=== PATIENT | male | born 1995 | race Caucasian/White ===

== ENCOUNTER 2018-02-28 22:16 | Emergency (ER) | payer OTHER ==
[2018-02-28 22:26] VITALS: BP 157/89; BMI 31.5
--- NOTE | 2018-02-28 23:17 | DR.GENAD ---
HPI - PCP Primary Care Physician: JEANNIE VALENCIA - Complaint/Symptoms Chief Complaint Doctors Comments: Patient is complaining of RLQ pain for the past 2-3 days getting progressively worst when he eats. He denies dysuria, hematuria, diarrhea, cold, cough, fever or chills but has been having constipation. States he is taking Plaquinel for lupus and Linzess for constipation. States he had an x-ray yesterday from Dr. Valencia for constipation and he told him his bowels was fine. Chief Complaint:: STOMACH PAIN Self Treatment fo Chief Complaint: LINESS 145MG LAST NIGHT FOR CONSTIPATION - Nurses notes reviewed Nurses Notes Review: Yes - Source History Provided: Patient, Family Member - Mode of Arrival Mode of Arrival: Ambulatory - Timing Onset of Chief Complaint: 02/25/18 Came on: Gradually - Duration Duration: Constant How lon Duration: Days - Location Location: RLQ tenderness - Severity Severity: Moderate - Modifying Factors Worsens:: eating Improves:: nothing. PMH - PMH Past Medical History: Yes Past Medical History: Arthritis Past Medical History Comment: LUPUS, IBS, Past Surgical History: No - Family History History of Family Medical Conditions: Yes Family Medical History: Diabetes Mellitus, Cancer Family Medical History Comment: MOTHER-DM. SISTER-HTN. DADDY-HTN. GRANDPARENT /PAT-DM, HEART DISEASE. PAPA/PAT- CANCER - Social History Does patient currently use any type of tobacco product: No Have you used tobacco products in the last 12 months: No Type of Tobacco Use: None Does any household member use tobacco: Yes Alcohol Use: Occasionally Do you use any recreational Drugs:: No Lives With: Friend Lives Where: Home - infectious screening In the last 2 months have you had wt loss of >10#?: NO Have you had fever, night sweats or hemotysis?: No Have you traveled outside the country in the last 6 months?: No Isolation: Standard ROS - Review of Systems Constitutional: No Symptoms Reported, Loss of Appetite Eyes: No Symptoms Reported. negative: See HPI, Eye Pain, Blurred Vision, Tearing, Discharge, Photophobia, Diplopia, Other ENTM: No Symptoms Reported Respiratoy: No Symptoms Reported. negative: See HPI, Productive Cough, Non- Productive Cough, Moist Cough, Dry Cough, Hacking Cough, Barking Cough, Brassy Cough, Orthopnea, Short of Breath, Stridor, Wheezing, Hemoptysis, Other Cardiovascular: No Symptoms Reported Gastrointestinal/Abdominal: No Symptoms Reported, Abdominal Pain (RLQ pain), Constipation, Nausea Genitourinary: No Symptoms Reported. negative: See HPI, Discharge, Dysuria, Frequency, Hematuria, Pain, Bleeding, Other Neurological: No Symptoms Reported Musculoskeletal: No Symptoms Reported. negative: See HPI, Back Pain, Gout, Joint Pain, Joint Swelling, Muscle Pain, Muscle Stiffness, Neck Pain, Right, Left, Neck, Chest wall, Rib(s), Back, Shoulder, Arm, Elbow, Forearm, Wrist, Hand , Pelvis, Hip, Leg, Knee, Ankle, Foot, Other Integumentary: No Symptoms Reported Hematologic/Lymphatic: No Symptoms Reported. negative: See HPI, Anemia, Blood Clots, Easy Bleeding, Easy Bruising, Swollen Glands, Lymphadenopathy, Other Endocrine: No Symptoms Reported Psychiatric: No Symptoms Reported. negative: See HPI, Anxiety, Depression, Hallucinations, Excessive crying, Suicidal, Other PE - Vital Signs Vitals: Temperature 99.5 F Pulse Rate 90 Respiratory Rate 22 Blood Pressure 157/89 O2 Sat by Pulse Oximetry 99 - General Limitations: No Limitations General Appearance: Alert, In Distress (slight) - Head Head Exam: Normal Inspection, Atraumatic, Normocephalic - Eyes Eye exam: Normal Appearance, PERRL, EOMI. negative: Scleral Icterus, Conjunctival Injection, Nystagmus, Miosis, Mydrasis, Periorbital Swelling, Periorbital Tenderness, Other - ENT ENT Exam: Normal Exam, Normal Oropharynx, Normal External Ear Exam, Mucous Membranes Moist, TM's Normal Bilaterally External Ear Exam: Normal External Inspection TM/Canal Exam: Bilateral Normal Nose Exam: Normal Nose Exam Mouth Exam: Normal Inspection. negative: Drooling, Trismus, Lip Swelling, Tongue Elevation, Tongue Swelling, Laceration, Other Throat Exam: Normal Inspection - Neck Neck Exam: Normal Inspection, Full ROM, Trachea Midline - Chest Chest Inspection: Normal Inspection, Symmetric Chest Wall Rise. negative: Tenderness, Rash, Abscess, Other - Respiratory Respiratory Exam: Normal Lung Sounds Bilat Respiratory Exam: Bilateral Clear to Auscultation - Cardiovascular Cardiovascular Exam: Regular Rate, Normal Rhythm, Normal Heart Sounds - Abdominal Exam Abdominal Exam: Normal Inspection, Normal Bowel Sounds, Soft, Tenderness (RLQ, epigastric tenderness), Dimnished Bowel Sounds Abdominal Tenderness: RLQ, Epigastrium, Moderate - Extremities Extremities Exam: Normal Inspection, Full ROM, Normal Capillary Refill. negative: Tenderness, Edema, Joint Swelling, Calf Tenderness, Other - Back Back Exam: Normal Inspection, Full ROM - Neurologic Neurological Exam: Alert, Oriented X3, CN II-XII Intact, Normal Gait, Reflexes Normal - Psychiatric Psychiatric Exam: Normal Affect, Normal Mood - Skin Skin Exam: Warm, Dry, Intact, Normal Color ROR - Labs Reviewed Laboratory Results Reviewed?: Yes (All labs and x-ray results reviewed and discussed with patient and mother) Result Diagrams: 02/28/18 23:22 02/28/18 23: Laboratory: WBC 13.5 X10^3/uL (3.6-10.0) H 02/28/18: RBC 4.92 X10^6/uL (4.7-6.0) 02/28/18: Hgb 14.8 g/dL (13.5-18.0) 02/28/18: Hct 42.0 % (42.0-54.0) 02/28/18: MCV 85.3 fL (80.0-100.0) 02/28/18 23: MCH 30.0 pg (27.0-34.0) 02/28/18 23: MCHC 35.1 g/dL (33.0-35.0) H 02/28/18: RDW 12.7 % (11.6-16.5) 02/28/18: Plt Count 172 X10^3/uL (150.0-450.0) 02/28/18: MPV 9.5 fL (7.4-11.0) 02/28/18: Neut % (Auto) 68.0 % (42.0-75.0) 02/28/18: Lymph % (Auto) 20.0 % (21.0-51.0) L 02/28/18: [place] % (Auto) 9.7 % (0.0-13.0) 02/28/18: Eos % (Auto) 1.9 % (0.9-2.9) 02/28/18: Baso % (Auto) 0.4 % (0.2-1.0) 02/28/18 23:22 Neut # (Auto) 9.1 x10^3/uL (2.2-4.8) H 02/28/18 23:22 Lymph # (Auto) 2.7 X10^3/uL (1.3-2.9) 02/28/18 23:22 [place] # (Auto) 1.3 x10^3/uL (0.3-0.8) H 02/28/18 23:22 Eos # (Auto) 0.3 x10^3/uL (0.0-0.2) H 02/28/18 23:22 Baso # (Auto) 0.1 X10^3/uL (0.0-0.1) 02/28/18 23:22 Absolute Nucleated RBC 0.0 /100WBC 02/28/18 23:22 Sodium 142 mmol/L (136-145) 02/28/18 23:22 Corrected Sodium TNP 02/28/18 23:22 Potassium 4.0 mmol/L (3.5-5.1) 02/28/18 23:22 Chloride 107 mmol/L (98-107) 02/28/18 23:22 Carbon Dioxide 26.9 mmol/L (21-32) 02/28/18 23:22 BUN 18 mg/dL (7-18) 02/28/18 23:22 Creatinine 2.40 mg/dL (0.70-1.30) H 02/28/18 23:22 Est GFR (MDRD) Af Amer 44 (>60) L 02/28/18 23:22 Est GFR (MDRD) Non-Af 37 (>60) L 02/28/18 23:22 Glucose 110 mg/dL (65-99) H 02/28/18 23:22 Calcium 8.4 mg/dL (8.5-10.1) L 02/28/18 23:22 Corrected Calcium TNP 02/28/18 23:22 Total Bilirubin 0.50 mg/dL (0.2-1.0) 02/28/18 23:22 AST < 6 Units/L (15-37) L 02/28/18 23:22 ALT 19 Units/L (12-78) 02/28/18 23:22 Alkaline Phosphatase 106 Units/L (46-116) 02/28/18 23:22 Total Protein 7.8 g/dL (6.4-8.2) 02/28/18 23:22 Albumin 3.6 g/dL (3.4-5.0) 02/28/18 23:22 Globulin 4.2 g/dL (2.5-4.5) 02/28/18 23:22 Albumin/Globulin Ratio 0.9 Ratio (1.1-2.1) L 02/28/18 23: Amylase 32 Units/L (25-115) 02/28/18 23: Lipase 82 Units/L (73-393) 02/28/18 23:22 Specimen Type Clean catch urine 03/01/18 00:19 Urine Color Pale yellow (YELLOW) 03/01/18: Urine Appearance Clear (CLEAR) 03/01/18: Urine pH 7.0 (5.0 - 8.0) 03/01/18 00: Ur Specific [place] 1.005 (1.000-1.030) 03/01/18: Urine Protein Negative (NEGATIVE) 03/01/18 00: Urine Glucose (UA) Negative (NEGATIVE) 03/01/18 00: Urine Ketones Negative (NEGATIVE) 03/01/18: Urine Occult Blood 3+ (NEGATIVE) 03/01/18: Urine Nitrite Negative (NEGATIVE) 03/01/18: Urine Bilirubin Negative (NEGATIVE) 03/01/18 00: Urine Urobilinogen Normal (NORMAL) 03/01/18: Ur Leukocyte Esterase Negative (NEGATIVE) 03/01/18: Urine RBC 3-5 /HPF (NONE SEEN) 03/01/18 00: Urine WBC None seen /HPF (NONE SEEN) 03/01/18 00: Ur Squamous Epith Cells Rare /HPF (NEGATIVE) 03/01/18: Urine Bacteria Negative /HPF (NEGATIVE) 03/01/18: Ur Culture Indicated? No/not indicated 03/01/18 00: H. pylori IgG Antibody Negative (NEGATIVE) 02/28/18 23:22 - XRAY XRAY Interpreted by: Radiologist (CT abdomen and pelvis: Negative non cntrast CT of the abdomen and pelvis) - Diagnosis Discharge Problem: Abdominal pain in male, History of lupus, Dyspepsia Hematuria Qualifiers: Hematuria type: asymptomatic microscopic Qualified Code(s): R31.21 - Asymptomatic microscopic hematuria Chronic kidney disease Qualifiers: Chronic kidney disease stage: stage 3 (moderate) Qualified Code(s): N18.3 - Chronic kidney disease, stage 3 (moderate) - Discharge Plan Disposition: HOME, SELF-CARE Condition: Stable Prescriptions: Ranitidine HCl [ZANTAC TAB 150 MG *] 150 mg PO BID #60 tab - Follow ups/Referrals Follow ups/Referrals: JEANNIE VALENCIA [Primary Care Provider] - 3 days - Instructions Instructions: Food Basics for Chronic Kidney Disease, Preventing Chronic Kidney Disease, Hematuria, Adult, Abdominal Pain, Adult, [id number]
[2018-02-28 23:39] LABS: BASOPHILS # (AUTO) 0.1 X10^3/uL (0.0-0.1); BASOPHILS % (AUTO) 0.4 % (0.2-1.0); EOSINOPHILS # (AUTO) 0.3 x10^3/uL (0.0-0.2); EOSINOPHILS % (AUTO) 1.9 % (0.9-2.9); HEMOGLOBIN 14.8 g/dL (13.5-18.0); LYMPHOCYTES # (AUTO) 2.7 X10^3/uL (1.3-2.9); MEAN CORPUSCULAR HGB CONC 35.1 g/dL (33.0-35.0); MEAN CORPUSCULAR VOLUME 85.3 fL (80.0-100.0); MEAN PLATELET VOLUME 9.5 fL (7.4-11.0); MONOCYTES # (AUTO) 1.3 x10^3/uL (0.3-0.8); MONOCYTES % (AUTO) 9.7 % (0.0-13.0); NEUTROPHILS # (AUTO) 9.1 x10^3/uL (2.2-4.8); PLATELET COUNT 172 X10^3/uL (150.0-450.0); RED BLOOD COUNT 4.92 X10^6/uL (4.7-6.0); RED CELL DISTRIBUTION WIDTH 12.7 % (11.6-16.5); WHITE BLOOD COUNT 13.5 X10^3/uL (3.6-10.0)
[2018-02-28 23:46] LABS: ALANINE AMINOTRANSFERASE 19 Units/L (12-78); ALBUMIN 3.6 g/dL (3.4-5.0); ALKALINE PHOSPHATASE 106 Units/L (46-116); AMYLASE 32 Units/L (25-115); ASPARTATE AMINO TRANSFERASE < 6 Units/L (15-37); BLOOD UREA NITROGEN 18 mg/dL (7-18); CALCIUM 8.4 mg/dL (8.5-10.1); CARBON DIOXIDE 26.9 mmol/L (21-32); CHLORIDE 107 mmol/L (98-107); LIPASE 82 Units/L (73-393); SODIUM 142 mmol/L (136-145); TOTAL PROTEIN 7.8 g/dL (6.4-8.2); eGFR BLACK RACES 44 (>60); eGFR NON BLACK RACES 37 (>60)
[2018-03-01 00:51] LABS: BILIRUBIN,URINE NEGATIVE (NEGATIVE); BLOOD/HEMOGLOBIN,URINE 3+ (NEGATIVE); GLUCOSE, URINE NEGATIVE (NEGATIVE); KETONES,URINE NEGATIVE (NEGATIVE); LEUKOCYTE ESTERASE ,URINE NEGATIVE (NEGATIVE); NITRITES,URINE NEGATIVE (NEGATIVE); PROTEIN,URINE NEGATIVE (NEGATIVE); UROBILINOGEN,URINE NORMAL (NORMAL)
[2018-03-01 00:59] LABS: APPEARANCE,URINE CLEAR (CLEAR); BACTERIA,URINE NEGATIVE /HPF (NEGATIVE); COLOR,URINE PALE YELLOW (YELLOW); SQUAMOUS EPITHELIAL CELL,UR RARE /HPF (NEGATIVE)
[2018-03-01] MEDS ORDERED: TORADOL 60 MG VIAL ONE (01:29)
--- NOTE | 2018-03-01 01:46 | CT ---
HISTORY: Right lower quadrant pain Study: CT abdomen and pelvis without contrast Comparison: None Technique: Multiple axial images of the abdomen and pelvis were obtained without IV contrast. Dose reduction t echniques including Automated Exposure Control (AEC) and adjustment of mA and kV were utilized. Findings: Please note evaluation is limited without use of IV contrast. The visualized lung bases are clear. The liver, spleen, pancreas, kidneys, and adrenal glands are un remarkable in their unenhanced CT appearance. The gallbladder is normal. No free intraperitoneal air. No evidence of intestinal obstruction or inflammation. Normal appendix. Oral contrast reaches the proximal colon. No free fluid identified. The soft tissues and osseous structures are unremarkable. Limited evaluation of vascular structures d ue to lack of contrast. No pathologically enlarged lymph nodes are identified. Normal urinary bladder IMPRESSION: 1.Negative noncontrast CT of the abdomen and pelvis. Reported By:
[2018-03-01] MEDS ORDERED: LEVSIN/MAALOX/LIDOC VISC PO ONE (02:05)
[2018-03-01] MEDS ORDERED: LEVSIN/MAALOX/LIDOC VISC ONE (02:06)
== END 2018-03-01 02:16 | disposition home or self-care (01) ==
LOC: ER 22:16
DX: R10.31 Right lower quadrant pain (principal); N18.3 Chronic kidney disease, stage 3 (moderate); Z87.39 Personal history of other diseases of the musculoskeletal system and connective tissue; R31.21 Asymptomatic microscopic hematuria; R10.13 Epigastric pain
CPT/HCPCS: 36415; 74176; 80053; 81001; 82150; 83690; 85025; 86677; 99283; J1885

== ENCOUNTER → 2018-02-28 | Outpatient (CLI) | payer OTHER ==
[2013-05-04 18:29] VITALS: BP 114/74
--- NOTE | 2018-02-28 12:57 | RAD ---
HISTORY: Abdominal pain for 1 week Study: Acute abdominal series Comparison: None Findings: The trachea is midline. The cardiac silhouette is unremarkable. The lungs are clear without focal i nfiltrate or effusion. The bony thorax is unremarkable. Flat plate and upright evaluation of the abdomen demonstrates a normal bowel gas pattern. No patholo gical soft tissue mass or calcification can be observed. The bony structures are grossly intact. IMPRESSION: 1. No acute cardiopulmonary disease. 2. No evidence for acute abdominal pathology identified. Reported By:
== END ==
LOC: RAD 12:35
PROVIDERS: ATTEND Obstetrics & Gynecology Obstetrics
DX: R10.84 Generalized abdominal pain (principal)
CPT/HCPCS: 74022

== ENCOUNTER → 2018-03-04 | Outpatient (CLI) | payer OTHER ==
[2018-02-28 22:26] VITALS: BP 157/89
--- NOTE | 2018-03-05 07:40 | US ---
History: Chronic kidney disease Study: Ultrasound of the kidneys Comparison: None Findings: The right kidney measures 10.8 x 4.55 x 6 point 9 cm without mass. There is no hydronephros is. The left kidney measures 11.41 x 4.71 x 6.81 cm without mass or hydronephrosis. Measurements calculate the prevoid volume of 248 mL in the urinary bladder a postvoid residual of 4.6 mL. There is mildly increased echogenicity of renal cortex bilaterally. Impression: 1. Mildly increased echogenicity of renal cortex compatible with a diffuse renal cortical disease 2. 4.6 mL post void residual in urinary bladder Reported By:
== END ==
LOC: RAD 15:46
PROVIDERS: ATTEND Internal Medicine
DX: N18.3 Chronic kidney disease, stage 3 (moderate) (principal)
CPT/HCPCS: 76770

== ENCOUNTER → 2018-03-09 | Outpatient (CLI) | payer OTHER ==
[2018-02-28 22:26] VITALS: BP 157/89
[2018-03-09 16:41] LABS: BASOPHILS % (AUTO) 0.4 % (0.2-1.0); EOSINOPHILS # (AUTO) 0.3 x10^3/uL (0.0-0.2); EOSINOPHILS % (AUTO) 2.7 % (0.9-2.9); LYMPHOCYTES # (AUTO) 3.5 X10^3/uL (1.3-2.9); LYMPHOCYTES % (AUTO) 35.2 % (21.0-51.0); MEAN CORPUSCULAR HEMOGLOBIN 29.8 pg (27.0-34.0); MEAN CORPUSCULAR HGB CONC 35.6 g/dL (33.0-35.0); MEAN CORPUSCULAR VOLUME 83.6 fL (80.0-100.0); MEAN PLATELET VOLUME 9.2 fL (7.4-11.0); MONOCYTES # (AUTO) 0.6 x10^3/uL (0.3-0.8); MONOCYTES % (AUTO) 6.2 % (0.0-13.0); NEUTROPHILS # (AUTO) 5.6 x10^3/uL (2.2-4.8); NEUTROPHILS % (AUTO) 55.5 % (42.0-75.0); PLATELET COUNT 226 X10^3/uL (150.0-450.0); RED BLOOD COUNT 5.38 X10^6/uL (4.7-6.0); RED CELL DISTRIBUTION WIDTH 12.5 % (11.6-16.5)
[2018-03-09 16:46] LABS: BLOOD UREA NITROGEN 16 mg/dL (7-18); CALCIUM 8.5 mg/dL (8.5-10.1); CARBON DIOXIDE 28.1 mmol/L (21-32); CHLORIDE 104 mmol/L (98-107); COR NA(FOR HYPERGLY) 140 mmol/L (136-145); CREATININE 1.33 mg/dL (0.70-1.30); PHOSPHORUS 3.2 mg/dL (2.6-4.7); SODIUM 140 mmol/L (136-145); eGFR BLACK RACES > 60 (>60); eGFR NON BLACK RACES > 60 (>60)
[2018-03-09 17:09] LABS: CREATININE,URINE 55.89 mg/dL (40-278); MICROALBUM/CREATININE RATIO,UR 3 mg/g cre (0-29); MICROALBUMIN,URINE 1.8 mg/L
[2018-03-09 17:48] LABS: SODIUM,URINE 147 mmol/L (40-220)
[2018-03-09 17:52] LABS: TOTAL PROTEIN,URINE < 6.0 mg/dl (0-11.9)
[2018-03-09 18:05] LABS: CHOL/HDL RATIO 3.5 (0.0-5.0); CHOLESTEROL 132 mg/dL (0-200); HDL CHOLESTEROL 38 mg/dL (40-60); TRIGLYCERIDES 160 mg/dL (0-150)
[2018-03-09 18:51] LABS: APPEARANCE,URINE CLEAR (CLEAR); BILIRUBIN,URINE NEGATIVE (NEGATIVE); BLOOD/HEMOGLOBIN,URINE NEGATIVE (NEGATIVE); COLOR,URINE PALE YELLOW (YELLOW); GLUCOSE, URINE NEGATIVE (NEGATIVE); KETONES,URINE NEGATIVE (NEGATIVE); LEUKOCYTE ESTERASE ,URINE NEGATIVE (NEGATIVE); NITRITES,URINE NEGATIVE (NEGATIVE); PROTEIN,URINE NEGATIVE (NEGATIVE); UROBILINOGEN,URINE NORMAL (NORMAL)
== END ==
LOC: LAB 15:44
PROVIDERS: ATTEND Internal Medicine
DX: N17.8 Other acute kidney failure (principal); R31.9 Hematuria, unspecified; N18.3 Chronic kidney disease, stage 3 (moderate); D80.8 Other immunodeficiencies with predominantly antibody defects
CPT/HCPCS: 36415; 80061; 80069; 81003; 82043; 83516; 83883; 84157; 84300; 85025; 86021; 86308